=== PATIENT | male | born 1995 | race Caucasian/White ===

== ENCOUNTER 2017-01-05 19:03 | Emergency (ER) | payer MEDICAID, OTHER ==
[~2017-01-05] VITALS: Ht 177.8 cm; Wt 96.5 kg
[~2017-01-05 19:03] MED LIST: NO CURRENT MEDS; NO MEDS
[2017-01-05 19:14] VITALS: Ht 177.8 cm; Wt 96.5 kg
[2017-01-05] MEDS ORDERED: KETOROLAC 60 MG INJ IM STA (21:14)
[2017-01-05] MEDS ORDERED: ACETAMINOPHEN 500 MG TAB PO STA (21:14)
[2017-01-05] MEDS ORDERED: AMO500 PO (21:40)
[2017-01-05] MEDS ORDERED: IBUP-1542 PO (21:41)
[2017-01-05 21:50] VITALS: BP 138/64; PULSE 86; RESP 20; TEMP 98.3
--- NOTE | 2017-01-06 01:31 | ERD ---
ER Documentation Chief Complaint Date/Time DATE: 01/06/17 TIME: 01:29 Chief Complaint Sore throat and fever x1 day HPI 21-year-old male presents to the emergency department complaining of a sore throat and fever for the past day. Patient states the pain is moderate to severe, increased with swallowing. He denies any cough, ear pain. He denies taking any medications for this ROS All systems reviewed and are negative except as per history of present illness. Medications Home Meds Active Scripts Ibuprofen* (Motrin*) 600 Mg Tab, 600 MG PO Q6H Y for PAIN AND OR ELEVATED TEMP, #30 TAB Prov:ALEXSANDRA VALDERRAMA PA-C 01/05/17 Amoxicillin* (Amoxicillin*) 500 Mg Cap, 500 MG PO TID for 10 Days, CAP Prov:ALEXSANDRA VALDERRAMA PA-C 01/05/17 Reported Medications [No Meds] No Conflict Check 02/22/11 [No Current Meds] No Conflict Check 02/18/10 Allergies Allergies: Coded Allergies: No Known Drug Allergies (Verified Allergy, Mild, 01/05/17) PMhx/Soc Medical and Surgical Hx: pt denies Medical Hx, pt denies Surgical Hx History of Surgery: No Anesthesia Reaction: No Hx Neurological Disorder: No Hx Respiratory Disorders: No Hx Cardiac Disorders: No Hx Psychiatric Problems: No Hx Miscellaneous Medical Probl: No Hx Alcohol Use: No Hx Substance Use: No Hx Tobacco Use: No Smoking Status: Never smoker Physical Exam Vitals Vital Signs Date Time Temp Pulse Resp B/P Pulse Ox O2 Delivery O2 Flow Rate FiO2 01/05/17 21:50 98.3 86 20 138/64 99 Room Air 01/05/17 19:14 102.6 99 20 124/59 97 Physical Exam Const: WD/WN Head: Atraumatic Eyes: Normal Conjunctiva ENT: Tonsillar edema and exudates Neck: No lymphadenopathy Resp: Clear to auscultation bilaterally Cardio: Regular rate and rhythm, no murmurs Abd: Soft, non tender, non distended. Normal bowel sounds Skin: No petechiae or rashes Back: No midline or flank tenderness Ext: No cyanosis, or edema Neur: Awake and alert Psych: Normal Mood and Affect Results 24 hrs Current Medications Medications (Trade) Dose Ordered Sig/Marlon Route PRN Reason Start Time Stop Time Status Last Admin Dose Admin Ketorolac Tromethamine (Toradol) 60 mg ONCE STAT IM 01/05/17 21:14 01/05/17 21:16 DC 01/05/17 21:41 Acetaminophen (Tylenol Tab) 1,000 mg ONCE STAT PO 01/05/17 21:14 01/05/17 21:16 DC 01/05/17 21:41 Procedures/MDM This is a 21-year-old male presenting to emergency department with tonsillitis. Patient will empirically treat for strep pharyngitis to having tonsillar exudates, absent cough, fever and mild cervical adenopathy. There was no evidence of peritonsillar or retropharyngeal abscess. Patient is febrile and was given Tylenol and Toradol, and his fever trend downward. Patient is given prescription for amoxicillin. Discussed to follow-up with primary care physician. Discussed return to the ER for worsening tenseness. He understands and agrees with Departure Diagnosis: Primary Impression: Tonsillitis Condition: Stable Patient Instructions: Pharyngitis, Strep (Presumed) Referrals: BRYANNA HERNANDEZ MD (PCP) Additional Instructions: FOLLOW UP WITH YOUR PRIMARY CARE PHYSICIAN TOMORROW.Return to this facility if you are not improving as expected. Take all medicines as directed. Return to this facility if you are not improving as expected. ALEXSANDRA VALDERRAMA PA-C Jan 06, 2017 01:31
== END 2017-01-05 21:50 | disposition home or self-care (01) ==
LOC: FTE 19:03
DX: J03.90 Acute tonsillitis, unspecified (principal)
CPT/HCPCS: J1885; Z7610; 96372